=== PATIENT | female | born 1980 | race Caucasian/White ===

== ENCOUNTER 2017-04-18 05:54 | Emergency (ER) | payer BC ==
[2017-04-18 06:03] VITALS: RESP 18
[2017-04-18] MEDS ORDERED: ONDANSETRON 4 MG/2 ML VIAL IVP ONE (06:17)
[2017-04-18] MEDS ORDERED: fentaNYL 100 MCG/2 ML INJ IVP ONE (06:17)
[2017-04-18] MEDS ORDERED: NS 1,000 ML IV ONE (06:17)
[2017-04-18 06:28] LABS: PLATELET COUNT 180 10^3/uL (150-400)
[2017-04-18] MEDS ORDERED: IOPAMIDOL (ISOVUE 370) 100 ML BTL IV ONE (06:30)
--- NOTE | 2017-04-18 06:33 | EDPHY ---
H & P Stated Complaint: says fell snowboarding yest, says phone jammed into RUQ, n/v/ d x 3hrs Time Seen by Provider: 04/18/17 06:07 HPI/ROS: Chief Complaint: Right-sided chest wall pain, nausea, vomiting, diarrhea status post fall HPI: 36-year-old woman fell onto her right chest wall while snowboarding yesterday. She had the wind knocked out of her. She landed on her own on her right hand side. Since that time she has had worsening right lower chest wall and right upper abdominal pain. 2-4 hours ago she started developing nausea vomiting and diarrhea. Denies any coffee-ground or blood in her vomit. No black tarry stools or blood. Some subjective chills. She did take some Advil several hours ago but has not been able to keep anything down since. No substernal chest pain. Pain is only a little worse with deep inspiration. No cough. She did not hit her head. She had no loss of consciousness. She was wearing a helmet. She denies headache. ROS: 10 point Review of Systems is negative except as noted in the HPI. PMH: Polycystic ovary disease Social History: No smoking, occasional alcohol, occasional marijuana Family History: non-contributory Physical Exam: Gen: Awake, Alert, Airway Intact HEENT: Head: Atraumatic Eyes: PERRLA, EOMI Nose: No epistaxis Mouth: Normal dentition, Airway patent Face: No deformity Neck: non-tender, no stepoff, Full ROM without pain Chest: She has significant chest wall tenderness in her right anterior axillary line along her lower ribs. There is some mild tenderness along her midclavicular line on the right as well., lungs CTA Heart: normal heart tones Abd: soft, she has significant tenderness with right upper quadrant with palpation with voluntary guarding, atraumatic Pelvis: non-tender, stable to AP and Lateral compression Back: atraumatic, no midline tenderness Ext: atramatic, full ROM Skin: no rash Neuro: CN II-XII intact, Strength 5/5 in all extremities, sensation intact in all extremities - Medical/Surgical History Hx Asthma: No Hx Chronic Respiratory Disease: No Hx Diabetes: No Hx Cardiac Disease: No Hx Renal Disease: No Hx Cirrhosis: No Hx Alcoholism: No Hx HIV/AIDS: No Hx Splenectomy or Spleen Trauma: No Other PMH: polycystic ovary syndrome, abd hematoma removed as a child - Social History Smoking Status: Never smoked Constitutional: Initial Vital Signs Temperature (C) 36.8 C 04/18/17 05:58 Heart Rate 86 04/18/17 05:58 Respiratory Rate 18 04/18/17 05:58 Blood Pressure 133/87 H 04/18/17 05:58 O2 Sat (%) 99 04/18/17 05:58 O2 Delivery Mode Room Air Allergies/Adverse Reactions: No Known Allergies Allergy (Unverified 04/18/17 06:03) Home Medications: Medication Instructions Recorded Control 04/18/17 Ondansetron Odt [Zofran Odt 4 mg 4 mg PO Q4 PRN #10 tab 04/18/17 (*)] Spironolactone 04/18/17 Medical Decision Making - Diagnostics Imaging Results: CT scan of the chest shows no rib fractures or intrathoracic injury. There is slight irregularity of the right glenoid. CT scan of the abdomen pelvis shows no acute intra-abdominal injury. There are a couple small liver lesions which are consistent possibly with hemangiomas. These will need follow-up as an outpatient. Studies interpreted by Dr. Saab. ED Course/Re-evaluation: 36-year-old woman status post fall on her right chest and abdomen with significant pain and nausea vomiting and diarrhea. CT scans of the chest and abdomen reveal no significant traumatic injuries. She does have some dilated loops of bowel consistent with gastroenteritis. There is also possible deformity of her right glenoid however she has no tenderness and she has full range of motion without any pain. Will discharge with follow-up with primary care physician. She will take [id number] pain medicine was sent home with prescription for Zofran as well. - Data Points Laboratory Results: Laboratory Results 04/18/17 06:20 04/18/17 06:20 04/18/17 04/18/17 04/18/17 06:20 06:20 06:17 WBC 11.66 10^3/uL H 10^3/uL (3.80-9.50) RBC 4.13 10^6/uL L 10^6/uL (4.18-5.33) Hgb 13.4 g/dL g/dL (12.6-16.3) POC Hgb 14.3 gm/dL gm/dL (12.6-16.3) Hct 38.9 % % (38.0-47.0) POC Hct 42 % % (38-47) MCV 94.2 fL fL (81.5-99.8) MCH 32.4 pg pg (27.9-34.1) MCHC 34.4 g/dL g/dL (32.4-36.7) RDW 12.6 % % (11.5-15.2) Plt Count 180 10^3/uL 10^3/uL (150-400) MPV 11.6 fL fL (8.7-11.7) Neut % (Auto) 89.0 % H % (39.3-74.2) Lymph % (Auto) 4.4 % L % (15.0-45.0) Power % (Auto) 5.0 % % (4.5-13.0) Eos % (Auto) 0.9 % % (0.6-7.6) Baso % (Auto) 0.3 % % (0.3-1.7) Nucleat RBC Rel Count 0.0 % % (0.0-0.2) Absolute Neuts (auto) 10.37 10^3/uL H 10^3/uL (1.70-6.50) Absolute Lymphs (auto) 0.51 10^3/uL L 10^3/uL (1.00-3.00) Absolute Monos (auto) 0.58 10^3/uL 10^3/uL (0.30-0.80) Absolute Eos (auto) 0.11 10^3/uL 10^3/uL (0.03-0.40) Absolute Basos (auto) 0.04 10^3/uL 10^3/uL (0.02-0.10) Absolute Nucleated RBC 0.00 10^3/uL 10^3/uL (0-0.01) Immature Gran % 0.4 % % (0.0-1.1) Immature Gran # 0.05 10^3/uL 10^3/uL (0.00-0.10) POC Sodium 141 mEq/L mEq/L (135-145) Sodium 143 mEq/L mEq/L (135-145) POC Potassium 3.8 mEq/L mEq/L (3.3-5.0) Potassium 4.3 mEq/L mEq/L (3.5-5.2) POC Chloride 105 mEq/L mEq/L (97-110) Chloride 105 mEq/L mEq/L (97-110) Carbon Dioxide 25 mEq/l mEq/l (22-31) Anion Gap 13 mEq/L mEq/L (8-16) POC BUN 11 mg/dL mg/dL (7-23) BUN 12 mg/dL mg/dL (7-23) Creatinine 0.7 mg/dL mg/dL (0.6-1.0) POC Creatinine 0.8 mg/dL mg/dL (0.6-1.0) Estimated GFR > 60 Glucose 113 mg/dL H mg/dL (70-100) POC Glucose 118 mg/dL H mg/dL (70-100) Calcium 9.3 mg/dL mg/dL (8.5-10.4) Medications Given: Discontinued Medications Fentanyl (Sublimaze) 50 mcg IVP EDNOW ONE Stop: 04/18/17 06:18 Last Admin: 04/18/17 06:30 Dose: 50 mcg Sodium Chloride (Ns) 1,000 mls @ 0 mls/hr IV ONCE ONE; Wide Open PRN Reason: Protocol Stop: 04/18/17 06:18 Last Admin: 04/18/17 06:29 Dose: 1,000 mls Ondansetron HCl (Zofran) 4 mg IVP EDNOW ONE Stop: 04/18/17 06:18 Last Admin: 04/18/17 06:29 Dose: 4 mg Point of Care Test Results: 04/18/17 06:17 POC Sodium 141 POC Potassium 3.8 POC Chloride 105 POC BUN 11 POC Creatinine 0.8 POC Glucose 118 H Departure - Departure Disposition: Home, Routine, Self-Care Clinical Impression: Chest wall contusion, Gastroenteritis Condition: Good Instructions: Chest Wall Pain (ED), Gastroenteritis (ED) Additional Instructions: May take ibuprofen, 600 mg 3 times a day for pain. He may also take acetaminophen, 1000 mg every 6 hr. Apply ice for 15 min of every hour while awake. He may take Zofran as needed for nausea and vomiting. Make sure to drink plenty of clear liquids. Follow up with primary care physician in 2-3 days for further evaluation. There is a slight irregularity in your shoulder on the CT scan which may represent a new bone injury. Follow up with your primary care physician if you have any pain or discomfort in this area. There are several small areas of your liver which likely represent abnormal blood vessel formation which are not worry some, however it is important to follow up with your primary care physician to have these evaluated further. Referrals: Gemma Babcock MD [Primary Care Provider] - As per Instructions Prescriptions: Ondansetron Odt [Zofran Odt 4 mg (*)] 4 mg PO Q4 PRN #10 tab PRN Reason: nausea
[2017-04-18] MEDS ORDERED: KETOROLAC 15 MG/1 ML SDV IVP ONE (07:31)
[2017-04-18 07:47] VITALS: TEMP 98.6
[2017-04-18 08:24] VITALS: BP 122/78; PULSE 69; O2SAT 98
== END 2017-04-18 08:21 | disposition home or self-care (01) ==
PROC: 3E0337Z Introduction of Electrolytic and Water Balance Substance into Peripheral Vein, Percutaneous Approach (ICD-10-PCS; principal; 2017-04-18)
DX: S20.219A Contusion of unspecified front wall of thorax, initial encounter (principal); K52.9 Noninfective gastroenteritis and colitis, unspecified; E86.9 Volume depletion, unspecified; V00.311A Fall from snowboard, initial encounter; Y99.8 Other external cause status; Y93.23 Activity, snow (alpine) (downhill) skiing, snowboarding, sledding, tobogganing and snow tubing
CPT/HCPCS: 82947-QW; 96374; J1885; J2405; J3010; Q9967